=== PATIENT | female | born 1965 | race African-American/Black ===

== ENCOUNTER 2019-12-11 04:59 | Emergency (ER) | payer MEDICAID ==
[~2019-12-11] VITALS: Ht 170.2 cm; Wt 80.0 kg
[2019-12-11 05:03] VITALS: BP 157/89
[2019-12-11] MEDS ORDERED: ACETAMINOPHEN 325MG TABLET PO ONE (06:15)
[2019-12-11] MEDS ORDERED: ACETAMINOPHEN 500MG TABLET PO SCH (07:00)
== END 2019-12-11 08:00 | disposition home or self-care (01) ==
LOC: ER 04:59
DX: G89.29 Other chronic pain (principal); M54.41 Lumbago with sciatica, right side; Z88.6 Allergy status to analgesic agent
CPT/HCPCS: 93971; 99284

== ENCOUNTER 2022-05-01 03:11 | Emergency (ER) | payer MEDICAID, OTHER ==
[~2022-05-01] VITALS: Ht 170.2 cm; Wt 73.0 kg
[2022-05-01] MEDS ORDERED: SODIUM CHLORIDE 0.9% 1000ML BAG (SEPSIS BOLUS) IV ONE (05:30)
[2022-05-01] MEDS ORDERED: PIPERACILLIN/TAZ 3.375G PREMIX 50 ML IV ONE (05:30)
[2022-05-01] MEDS ORDERED: VANCOMYCIN 1G PREMIX 200 ML IV ONE (05:30)
[2022-05-01 05:48] LABS: BASOPHILS % 0.3 % (0.0-2.0); EOSINOPHILS % 1.6 % (0.0-5.0); HEMATOCRIT. 35.4 % (36.0-48.0); HEMOGLOBIN. 11.4 g/dL (12.0-16.0); LYMPHOCYTES % 10.2 % (20.0-50.0); MEAN CORPUSCULAR HEMOGLOBIN 27.7 pg (28.0-32.0); MEAN PLATELET VOLUME 7.5 fl (7.4-10.4); MONOCYTES % 5.7 % (2.0-8.0); NEUTROPHILS % 82.2 % (40.0-76.0); PLATELET 440 x1000/uL (130-400); RED BLOOD CELL COUNT 4.11 mill/uL (4.2-5.4); RED CELL DISTRIBUTION WIDTH 13.8 % (11.6-14.6)
[2022-05-01 05:55] LABS: CHLORIDE 100 mEq/L (98-107)
[2022-05-01 06:02] LABS: PROTHROMBIN TIME 10.9 sec (9.6-11.0)
[2022-05-01 06:06] LABS: ETHANOL BLOOD < 10 mg/dL
[2022-05-01 07:25] LABS: *AMPHETAMINES SCREEN URINE NEGATIVE (NEGATIVE); *BARBITURATES SCREEN URINE NEGATIVE (NEGATIVE); *BENZODIAZEPINES SCREEN URINE NEGATIVE (NEGATIVE); *COCAINE SCREEN URINE PRESUMTIVE POSITIVE (NEGATIVE); CANNABINOID URINE SCREEN NEGATIVE (NEGATIVE); METHADONE URINE SCREEN NEGATIVE (NEGATIVE); OPIATES URINE SCREEN PRESUMTIVE POSITIVE (NEGATIVE); PHENCYCLIDINE URINE SCREEN PRESUMTIVE POSITIVE (NEGATIVE)
[2022-05-01 07:40] LABS: CLARITY URINE CLEAR (CLEAR); COLOR URINE YELLOW (YELLOW); KETONES URINE NEGATIVE (NEGATIVE); LEUKOCYTE ESTERASE URINE NEGATIVE (NEGATIVE); NITRITE URINE NEGATIVE (NEGATIVE); OCCULT BLOOD URINE NEGATIVE (NEGATIVE); PH URINE 5.5 (4.5-8.0); PROTEIN URINE TRACE (NEGATIVE); SPECIFIC GRAVITY URINE 1.017 (1.005-1.030); UROBILINOGEN URINE 0.2 E.U./dL (0.2-1.0)
[2022-05-01 10:12] VITALS: BP 146/78
== END 2022-05-01 10:47 | disposition left against medical advice (07) ==
LOC: ER 03:11 → EDBEDREQTM 07:32 → EDBEDREQSVC 07:32 → ER 10:47
DX: L03.311 Cellulitis of abdominal wall (principal); F19.10 Other psychoactive substance abuse, uncomplicated; T81.40XA Infection following a procedure, unspecified, initial encounter; X58.XXXA Exposure to other specified factors, initial encounter; F17.290 Nicotine dependence, other tobacco product, uncomplicated; F12.10 Cannabis abuse, uncomplicated
CPT/HCPCS: 36415; 71045; 74176; 80053; 80305; 80320; 81003; 83605; 83690; 84145; 85025; 85610; 87040; 87086; 93005; 96365; 96368; 99291; J2543; J3370; J7030; Z7610; G0480

== ENCOUNTER 2024-06-29 19:15 | Emergency (ER) | payer MEDICAID, OTHER ==
[~2024-06-29] VITALS: Ht 172.7 cm; Wt 73.0 kg
[2024-06-29 20:15] VITALS: PULSE 164; RESP 20; O2SAT 98
[2024-06-29] MEDS: LORAZEPAM 2MG/ML INJ IV ONE (20:15)
[2024-06-29] MEDS ORDERED: VANCOMYCIN 1G PREMIX 200 ML IV ONE (20:15)
[2024-06-29] MEDS ORDERED: NOREPINEPHRINE 8MG/250ML PMX 250 ML IV ONE (20:27)
[2024-06-29] MEDS ORDERED: DEXTROSE 50% WATER 50ML SYRINGE IV ONE (20:30)
[2024-06-29] MEDS ORDERED: MIDAZOLAM 100MG/100ML PMX 100 ML IV STA (21:00)
[2024-06-29] MEDS: NOREPINEPHRINE 8MG/250ML PMX 250 ML IV ONE ×2 (21:04→23:41)
[2024-06-29] MEDS: SODIUM CHLORIDE 0.9% (SEPSIS BOLUS) IV ONE (21:10)
[2024-06-29] MEDS: DEXTROSE 50% WATER 50ML SYRINGE IV ONE (21:14)
[2024-06-29] MEDS ORDERED: VANCOMYCIN 1GM PMX (XELLIA) 200 ML IV NR (21:15)
[2024-06-29] MEDS: PHENYLEPHRINE 50 MG in DEXT 5% WATER 245 ML IV STA (21:22)
[2024-06-29] MEDS: DEXTROSE 50% WATER 50ML SYRINGE IV NR (21:36)
[2024-06-29 22:01] VITALS: O2SAT 100
[2024-06-29] MEDS: MIDAZOLAM 100MG/100ML PMX 100 ML IV NR (22:01)
[2024-06-29] MEDS: PIPERACILLIN/TAZO 3.375G/50ML 50 ML IV ONE (22:30)
[2024-06-29 22:42] LABS: BG BASE EXCESS -25.4 mmol/L (-2.0-3.0); BG CARBOXYHEMOGLOBIN 3.7 % (0.5-1.5); BG DEOXYHEMOGLOBIN 5.1 % (0.0-5.0); BG FRACTION INSPIRED OXYGEN 100; BG HCO3 ACT 7.8 mmol/L (21.0-28.0); BG METHEMOGLOBIN 0.3 % (0.5-1.5); BG OXYGEN SATURATION 94.7 % (94.0-98.0); BG OXYHEMOGLOBIN 90.9 % (94.0-98.0); BG PCO2 57.5 mmHg (32.0-45.0); BG PH 6.753 (7.350-7.450); BG PO2 122.3 mmHg (83.0-108.0); BG SAMPLE SITE LEFT FEMORAL; BG TOTAL HEMOGLOBIN 6.6 g/dL (12.0-16.0); BG TOTAL RESPIRATORY RATE 28 b/min; BG VENT MODE VENT - AC
[2024-06-29 22:49] LABS: MEAN CORPUSCULAR HEMOGLOBIN 28.1 pg (28.0-32.0); MEAN CORPUSCULAR VOLUME 100.2 fL (81.0-99.0); MEAN PLATELET VOLUME 8.1 fl (7.4-10.4); PLATELET 274 x1000/uL (130-400); RED BLOOD CELL COUNT 2.08 mill/uL (4.2-5.4); RED CELL DISTRIBUTION WIDTH 15.8 % (11.6-14.6)
[2024-06-29 22:50] LABS: DIFFERENTIAL COMMENT 1
[2024-06-29 22:52] LABS: HEMATOCRIT. 20.8 % (36.0-48.0); HEMOGLOBIN. 5.8 g/dL (12.0-16.0)
[2024-06-29 22:58] LABS: CHLORIDE 101 mEq/L (98-107); SODIUM 137 mEq/L (136-145)
[2024-06-29 22:59] LABS: CALCIUM 8.4 mg/dL (8.7-10.4); CARBON DIOXIDE 11 mEq/L (21-32)
[2024-06-29] MEDS: PANTOPRAZOLE SODIUM 40 MG/VIAL IV ONE (23:00)
[2024-06-29] MEDS ORDERED: PANTOPRAZOLE 80 MG in SODIUM CHLORIDE 0.9% 100 ML IV SCH (23:00)
[2024-06-29 23:04] LABS: CREATININE 2.4 mg/dL (0.6-1.0); GLUCOSE 231 mg/dL (70-105); UREA NITROGEN BLOOD 63 mg/dL (9-23)
[2024-06-29 23:06] LABS: ALANINE AMINOTRANSFERASE 647 IU/L (10-49); ALBUMIN 1.8 g/dL (3.2-4.8); BILIRUBIN DIRECT 0.1 mg/dL (<=3.0); BILIRUBIN TOTAL 0.2 mg/dL (0.1-1.0)
[2024-06-29 23:15] VITALS: PULSE 112; RESP 22; O2SAT 99
[2024-06-29 23:17] LABS: ASPARTATE AMINOTRANSFERASE 1082 IU/L (<34)
[2024-06-29 23:19] LABS: LACTIC ACID 25.3 mmol/L (0.4-2.0)
[2024-06-29 23:20] LABS: ETHANOL BLOOD < 10 mg/dL (<10); POTASSIUM 7.1 mEq/L (3.5-5.1); PROTEIN TOTAL 4.1 g/dL (6.0-8.3); TROPONIN I HIGH SENSITIVITY 48 ng/L (3.0-34)
[2024-06-29 23:21] LABS: AMMONIA 339 uMol/L (<32)
[2024-06-29] MEDS: ALBUTEROL (0.083%) 2.5MG/3ML NEB HHN ONE (23:30)
[2024-06-29] MEDS ORDERED: DEXTROSE 50% WATER 50ML SYRINGE IV PRN (23:30)
[2024-06-29 23:35] LABS: ANISOCYTOSIS 1+; PLATELET ESTIMATE NORMAL
[2024-06-29 23:36] LABS: HYPOCHROMASIA 1+
[2024-06-29] MEDS: PIPERACILLIN/TAZO 3.375G/50ML 50 ML IV NR (23:41)
[2024-06-29] MEDS ORDERED: DOCUSATE SODIUM 100MG CAPSULE PO PRN (23:45)
[2024-06-29] MEDS ORDERED: GUAIFENESIN 200MG/10ML SUGAR FREE UDC PO PRN (23:45)
[2024-06-29] MEDS ORDERED: ACETAMINOPHEN 650MG SUPP PR PRN ×2 (23:45)
[2024-06-29] MEDS ORDERED: ONDANSETRON HCL 4MG/2ML INJ IV PRN (23:45)
[2024-06-29] MEDS ORDERED: IPRATROPIUM/ALBUTEROL 0.5-3(2.5)MG/3ML NEB HHN PRN (23:45)
[2024-06-29] MEDS ORDERED: CLONIDINE 0.1MG TABLET PO PRN (23:45)
[2024-06-29] MEDS ORDERED: MAGNESIUM/ALUMINUM HYDROXIDE/SIMETHICONE 30ML UDC PO PRN (23:45)
[2024-06-30] MEDS: LACTULOSE 20G/30ML UDC NG ONE (00:10)
[2024-06-30] MEDS: SODIUM POLYSTYRENE SULFONATE 15 G/60 ML BOT NG ONE (00:21)
[2024-06-30] MEDS: SODIUM BICARBONATE 8.4% 50MEQ/50ML SYR IV ONE (00:28)
[2024-06-30] MEDS: CALCIUM GLUCONATE 100MG/ML 10ML VIAL IV ONE (00:28)
[2024-06-30] MEDS ORDERED: PANTOPRAZOLE SODIUM 40 MG/VIAL IV SCH ×2 (00:30→09:00)
[2024-06-30] MEDS: DEXT 5%/LACTATED RINGERS 1,000 ML IV SCH (00:49)
[2024-06-30 01:00] VITALS: PULSE 50; RESP 23
[2024-06-30] MEDS: DOPAMINE 400MG/250ML PREMIX 250 ML IV PRN (01:06)
[2024-06-30] MEDS ORDERED: NOREPINEPHRINE 8MG/250ML PMX 250 ML IV PRN (01:15)
[2024-06-30] MEDS: SODIUM BICARBONATE 8.4% 50MEQ/50ML SYR IV NR ×2 (01:29→03:51)
[2024-06-30] MEDS: DEXTROSE 50% WATER 50ML SYRINGE IV NR (01:29)
[2024-06-30] MEDS: ACETYLCYSTEINE 200MG/ML 20% VIAL 4ML INH SCH (01:30)
[2024-06-30] MEDS: INSULIN REGULAR (HUMULIN R) 1000UNITS/10ML VIAL IV NR (01:30)
[2024-06-30] MEDS: IPRATROPIUM/ALBUTEROL 0.5-3(2.5)MG/3ML NEB HHN SCH (01:30)
[2024-06-30] MEDS: PANTOPRAZOLE SODIUM 40 MG/VIAL IV SCH (01:47)
[2024-06-30 02:00] VITALS: PULSE 48; RESP 23; O2SAT 100
[2024-06-30] MEDS: HYDROCORTISONE SOD SUCCINATE 100 MG/2 ML VIAL IV SCH (02:04)
[2024-06-30] MEDS: SODIUM BICARBONATE 150 MEQ in DEXTROSE 5% WATER 850 ML IV SCH (02:05)
[2024-06-30] MEDS: PHENYLEPHRINE 50MG/250ML PMX 250 ML IV PRN (02:05)
[2024-06-30 02:33] LABS: HEMATOCRIT 18.7 % (36.0-48.0); HEMOGLOBIN 5.4 g/dL (12.0-16.0)
[2024-06-30 02:40] LABS: IRON 93 ug/dL (50-170)
[2024-06-30 02:42] LABS: ALANINE AMINOTRANSFERASE 1055 IU/L (10-49)
[2024-06-30 02:43] LABS: ALBUMIN 1.7 g/dL (3.2-4.8); BILIRUBIN DIRECT 0.2 mg/dL (<=3.0); BILIRUBIN TOTAL 0.4 mg/dL (0.1-1.0); PROTEIN TOTAL 3.8 g/dL (6.0-8.3); TOTAL IRON BINDING CAPACITY 432 ug/dl (250-425)
[2024-06-30 02:46] LABS: INR 1.9; PARTIAL THROMBOPLASTIN TIME 70.7 sec (23.4-31.0); PROTHROMBIN TIME 20.3 sec (9.6-11.0)
[2024-06-30] MEDS: NOREPINEPHRINE 8MG/250ML PMX 250 ML IV PRN (02:47)
[2024-06-30 02:53] LABS: ASPARTATE AMINOTRANSFERASE 1921 IU/L (<34)
[2024-06-30 03:20] LABS: PHOSPHORUS 19.1 mg/dL (2.5-4.9); TROPONIN I HIGH SENSITIVITY 210 ng/L (3.0-34)
[2024-06-30] MEDS ORDERED: CALCIUM CHLORIDE 1GM/10ML SYR IV ONE (03:20)
[2024-06-30] MEDS ORDERED: EPINEPHRINE 10 MG in SODIUM CHLORIDE 0.9% 240 ML IV PRN (03:30)
[2024-06-30] MEDS: CALCIUM CHLORIDE 1GM/10ML SYR IV NR (03:51)
[2024-06-30 03:56] VITALS: TEMP 32.89152; O2SAT 100
[2024-06-30 03:58] VITALS: BP 93/42
[2024-06-30] MEDS: EPINEPHRINE 10 MG in SODIUM CHLORIDE 0.9% 240 ML IV PRN (03:58)
[2024-06-30 04:04] VITALS: PULSE 56; RESP 32
[2024-06-30] MEDS ORDERED: PHYTONADIONE 10 MG in DEXTROSE 5% WATER 50 ML IV NR (04:15)
[2024-06-30 04:20] VITALS: TEMP 91
[2024-06-30] MEDS ORDERED: VASOPRESSIN 20 UNIT in SODIUM CHLORIDE 0.9% 99 ML IV PRN (04:30)
[2024-06-30 05:02] LABS: BG BASE EXCESS -20.1 mmol/L (-2.0-3.0); BG CARBOXYHEMOGLOBIN 5.3 % (0.5-1.5); BG DEOXYHEMOGLOBIN 3.2 % (0.0-5.0); BG FRACTION INSPIRED OXYGEN 100; BG HCO3 ACT 10.6 mmol/L (21.0-28.0); BG METHEMOGLOBIN 0.1 % (0.5-1.5); BG OXYGEN SATURATION 96.6 % (94.0-98.0); BG OXYHEMOGLOBIN 91.4 % (94.0-98.0); BG PCO2 52.6 mmHg (32.0-45.0); BG PH 6.924 (7.350-7.450); BG PO2 118.3 mmHg (83.0-108.0); BG SAMPLE SITE LEFT FEMORAL; BG TOTAL RESPIRATORY RATE 32 b/min; BG VENT MODE VENT - AC
[2024-06-30] MEDS ORDERED: LACTULOSE 20G/30ML UDC PO SCH (06:00)
[2024-06-30] MEDS ORDERED: PIPERACILLIN/TAZO 3.375G/50ML 50 ML IV SCH (06:00)
[2024-06-30] MEDS ORDERED: INSULIN LISPRO 100 UNITS/ML SUBCUT SCH (08:20)
[2024-06-30] MEDS ORDERED: SUCRALFATE 1G TABLET PO SCH (09:00)
[2024-06-30] MEDS ORDERED: RIFAXIMIN 550 MG TABLET PO SCH (09:00)
[2024-06-30] MEDS ORDERED: BLOOD SUGAR DIAGNOSTIC STRIP TEST SCH (09:00)
== END 2024-06-30 07:31 | disposition admitted as inpatient to this hospital (09) ==
LOC: ER 19:15 → EDBEDREQSVC 23:20 → EDBEDREQ 23:49 → EDBEDREQTM 23:49 → EDBEDREQ 23:51 → CANBEDREQ 06-30 05:28 → ER 06-30 07:31
DX: A41.9 Sepsis, unspecified organism (principal); R65.21 Severe sepsis with septic shock; I46.9 Cardiac arrest, cause unspecified; N17.9 Acute kidney failure, unspecified; E86.0 Dehydration; I11.0 Hypertensive heart disease with heart failure; F14.10 Cocaine abuse, uncomplicated; D53.9 Nutritional anemia, unspecified; E87.5 Hyperkalemia; J96.01 Acute respiratory failure with hypoxia; F12.90 Cannabis use, unspecified, uncomplicated; Z79.899 Other long term (current) drug therapy
CPT/HCPCS: 80076 ×2; 80048; 80320; 82140; 82962 ×2; 83880; 83605 ×2; 83690; 85025; 86850; 86900; 86901; 86920; 87040; 87186; 84484 ×2; 87077; 36415 ×2; 84145; 71045; 70450; 82805 ×2; 82375 ×2; 93005; 36556; 96368; 92950; 96365; 96366; 96375 ×2; 99291; 36600 ×2; 83036; 83540; 83550; 83735; 84100; 85014; 85018; 85044; 85610; 85730; 31500; 96367; 96376; J3370; J0610; J3490 ×6; J2250; J2470 ×2; J2543; J7060 ×2; J7050; J7030; Z7610 ×6; J1720; J1815; J3430; J7070; J1265; 94003; J7608; P9016; G0480